=== PATIENT | female | born 1950 | race Hispanic/Latino ===

== ENCOUNTER 2021-04-08 19:41 | Emergency (ER) | payer OTHER ==
[~2021-04-08] VITALS: Ht 157.5 cm; Wt 45.8 kg
[2021-04-08] MEDS ORDERED: 0.9%NACL 1000ML 1,000 ML IV ONE ×2 (20:30→21:16)
[2021-04-08] MEDS ORDERED: ORPHENADRINE CITRATE 30 MG/ML ML IV ONE (20:30)
[2021-04-08] MEDS ORDERED: MECLIZINE HCL 25 MG TABLET PO ONE (20:30)
[2021-04-08] MEDS ORDERED: ONDANSETRON 4MG INJ IVP ONE (20:30)
[2021-04-08 21:09] LABS: BASOPHILS % (AUTO) 0.3 % (0.0-5.0); EOSINOPHILS % (AUTO) 1.4 % (0.0-8.0); HEMATOCRIT 36.7 % (36-48); LYMPHOCYTES % (AUTO) 22.8 % (21.0-51.0); MEAN CORPUSCULAR HEMOGLOBIN 29.3 pg (27.0-33.0); MEAN CORPUSCULAR HGB CONC 33.5 g/dL (32.0-36.0); MEAN CORPUSCULAR VOLUME 87.4 fL (79-99); MONOCYTES % (AUTO) 5.1 % (3.0-13.0); PLATELET COUNT (AUTO) 283 K/uL (130-400); RED CELL DISTRIBUTION WIDTH 13.1 % (11.0-15.5)
[2021-04-08] MEDS ORDERED: ONDANSETRON 4MG INJ ONE (21:15)
[2021-04-08] MEDS ORDERED: ORPHENADRINE CITRATE 30 MG/ML ML ONE (21:15)
[2021-04-08] MEDS ORDERED: MECLIZINE HCL 25 MG TABLET ONE (21:15)
[2021-04-08 21:19] LABS: CREATININE 0.8 mg/dL (0.5-1.5); POTASSIUM 3.6 mmol/L (3.5-5.1)
[2021-04-08 21:24] LABS: ALBUMIN 3.7 g/dL (3.5-5.0); BILIRUBIN,TOTAL 0.3 mg/dL (0.2-1.0)
[2021-04-08] MEDS ORDERED: ONDA4TAB10 PO (22:22)
[2021-04-08] MEDS ORDERED: MELO7.5T12 PO (22:22)
[2021-04-08] MEDS ORDERED: MECL-226 PO (22:22)
[2021-04-08] MEDS ORDERED: ORPH-43 PO (22:22)
[2021-04-08 22:34] VITALS: BP 162/67
== END 2021-04-08 22:45 | disposition home or self-care (01) ==
LOC: EDH 19:41
DX: M62.838 Other muscle spasm (principal); H81.399 Other peripheral vertigo, unspecified ear; R07.89 Other chest pain; R51.9 Headache, unspecified; E11.9 Type 2 diabetes mellitus without complications; E78.00 Pure hypercholesterolemia, unspecified; Z79.1 Long term (current) use of non-steroidal anti-inflammatories (NSAID); Z79.899 Other long term (current) drug therapy
CPT/HCPCS: 36415; 70450; 71045; 72125; 80053; 84484; 85025; 93005; 96361; 96374; 96375; 99284; J2360; J2405; J7030

== ENCOUNTER 2023-03-14 23:50 | Emergency (ER) | payer OTHER ==
[~2023-03-14] VITALS: Ht 152.4 cm; Wt 47.2 kg
[~2023-03-14 23:50] MED LIST: MECL-226 PO; MELO7.5T12 PO; ONDA4TAB10 PO; ORPH100T4 PO
[2023-03-15 00:24] LABS: CREATININE 0.8 mg/dL (0.5-1.5); POTASSIUM 3.5 mmol/L (3.5-5.1)
[2023-03-15 00:29] LABS: ALBUMIN 3.8 g/dL (3.5-5.0); BILIRUBIN,TOTAL 0.3 mg/dL (0.2-1.0)
[2023-03-15 00:33] LABS: BASOPHILS # (AUTO) 0.06 K/uL (0.00-0.20); BASOPHILS % (AUTO) 0.5 % (0.0-5.0); EOSINOPHILS # (AUTO) 0.16 K/uL (0.00-0.70); EOSINOPHILS % (AUTO) 1.3 % (0.0-8.0); IMMATURE GRANULOCYTE ABSOLUTE 0.02 K/uL (0-1); LYMPHOCYTES # (AUTO) 4.5 K/uL (1.0-4.8); LYMPHOCYTES % (AUTO) 35.9 % (21.0-51.0); MEAN CORPUSCULAR HEMOGLOBIN 30.5 pg (27.0-33.0); MEAN CORPUSCULAR HGB CONC 34.5 g/dL (32.0-36.0); MEAN CORPUSCULAR VOLUME 88.4 fL (79-99); MONOCYTES # (AUTO) 0.7 K/uL (0.1-1.0); MONOCYTES % (AUTO) 5.5 % (3.0-13.0); NEUTROPHILS # (AUTO) 7.1 K/uL (1.8-7.7); NEUTROPHILS % (AUTO) 56.6 % (40.0-77.0); PLATELET COUNT (AUTO) 378 K/uL (130-400); RED CELL DISTRIBUTION WIDTH 12.9 % (11.0-15.5); WHITE BLOOD COUNT (AUTO) 12.5 K/uL (4.8-10.8)
[2023-03-15] MEDS ORDERED: METH4TAB3 PO (01:38)
[2023-03-15 01:41] VITALS: BP 158/78; PULSE 76; RESP 18; O2SAT 98
== END 2023-03-15 01:53 | disposition home or self-care (01) ==
LOC: EDH 23:50
DX: S46.919A Strain of unspecified muscle, fascia and tendon at shoulder and upper arm level, unspecified arm, initial encounter (principal); M79.18 Myalgia, other site; M94.0 Chondrocostal junction syndrome [Tietze]; E11.9 Type 2 diabetes mellitus without complications; E78.00 Pure hypercholesterolemia, unspecified; Z90.710 Acquired absence of both cervix and uterus; Z90.49 Acquired absence of other specified parts of digestive tract; Z79.1 Long term (current) use of non-steroidal anti-inflammatories (NSAID); X58.XXXA Exposure to other specified factors, initial encounter; Y93.89 Activity, other specified; Y92.89 Other specified places as the place of occurrence of the external cause; Y99.8 Other external cause status
CPT/HCPCS: 36415; 71250; 80053; 84484; 85025

== ENCOUNTER → 2024-08-15 | Outpatient (CLI) | payer OTHER ==
[~2024-08-15] MED LIST changes: +METH4TAB3 PO; +ONDA-243 PO; -ONDA4TAB10 PO
== END | disposition home or self-care (01) ==
LOC: SHCH 09:09
PROVIDERS: ATTEND Internal Medicine Cardiovascular Disease
DX: I08.0 Rheumatic disorders of both mitral and aortic valves (principal); R55 Syncope and collapse; R01.1 Cardiac murmur, unspecified
CPT/HCPCS: 93306